=== PATIENT | female | born 1955 | race Asian ===

== ENCOUNTER 2016-12-24 07:54 | Day surgery (SDC) | payer MEDICARE ==
[~2016-12-24] VITALS: Ht 165.1 cm; Wt 58.5 kg
[~2016-12-24 07:54] MED LIST: ASPI-664 PO; HYD25 PO; LIPA1CAP6 PO; LORA-441 PO; METO25TA7 PO; NITR0.4T6 SL; PRAV20TA63 PO; TRAM50TA2 PO; ZOLP5TAB6 PO
[2016-12-24 08:59] VITALS: Ht 165.1 cm; Wt 58.5 kg
[2016-12-24 09:46] VITALS: BP 132/75; PULSE 47; RESP 12
[2016-12-24] MEDS ORDERED: FENTAnyl 50 MCG/ML VIAL ONE (09:51)
[2016-12-24] MEDS ORDERED: PROPOFOL 20 ML ONE (09:51)
[2016-12-24 11:20] VITALS: BP 126/68; PULSE 50; RESP 18
--- NOTE | 2016-12-24 11:21 | GILP ---
DATE OF PROCEDURE: 12/24/2016 PROCEDURE PERFORMED: Esophagogastroduodenoscopy with removal of four foreign bodies from the anasto motic site. INDICATION: A 61-year-old female has constant abdominal pain after Whipple surgery. MRCP could not be done because there is foreign material near the anastomotic site and those were metallic tags, w hich were holding the J-tube. When the radiologist removed the J-tube all these metallic tags where left behind. They did not fall out spontaneously. So the purpose of this procedure is to endoscop ically remove these foreign bodies and hopefully the pain would disappear. The risk of the procedur e, related and unrelated complications, anesthetic risks, alternatives discussed and informed consen t was obtained. DESCRIPTION OF PROCEDURE: The patient was brought to the GI lab, sedated by the anesthesiologist. After optimal sedation, scope was passed with much ease into the esophagus, advanced further down in to stomach. Anastomotic site examined and those foreign bodies were identified, all were metallic, attached to the anastomotic site with a string. Tried to cut with the seizures and also with the swain ture cutter. Two of them, I could cut them by frequent manipulation and able to remove the 2 metall ic tags. The other 2 were almost buried in the subcutaneous tissue. Managed to finally remove them successfully and all the four were left behind because they should come out spontaneously. No meta llic tags were left behind. Scope was removed with good patient tolerance. IMPRESSION: Foreign bodies in the form metallic tags tied to the anastomotic site, 4 of them succes sfully removed. PLAN: Monitor her symptoms. If despite that she continues to have symptoms, then we will get an MR CP done. Dictated By: ADRIANE CARRILLO/NTS Conf#: [id number] DID#: [id number] CC: ADRIANE MAYES MD;*EndCC*
== END 2016-12-24 12:04 | disposition home or self-care (01) ==
LOC: GIL 07:54
PROVIDERS: ATTEND Internal Medicine Gastroenterology
DX: T18.8XXA Foreign body in other parts of alimentary tract, initial encounter (principal); X58.XXXA Exposure to other specified factors, initial encounter; Y99.8 Other external cause status; Y92.89 Other specified places as the place of occurrence of the external cause; I10 Essential (primary) hypertension; E11.9 Type 2 diabetes mellitus without complications
CPT/HCPCS: 43247; J3010